=== PATIENT | male | born 1955 | race Two or more races ===

== ENCOUNTER 2019-07-21 10:59 | Outpatient (CLI) | payer MEDICAID ==
[~2019-07-21] VITALS: Ht 167.6 cm; Wt 81.2 kg
[2019-07-21 15:18] VITALS: BP 135/85
[2019-07-21] MEDS ORDERED: MICARDIS80 MG ORAL (15:18)
[2019-07-21] MEDS ORDERED: NYSTATIN15 GM TOPIC (15:18)
[2019-07-21] MEDS ORDERED: ASPIRIN EC81 MG ORAL (15:18)
[2019-07-21] MEDS ORDERED: AMLODIPINE BESY10 MG ORAL (15:18)
[2019-07-21] MEDS ORDERED: HYDROCHLOROTHIA25 MG ORAL (15:18)
[2019-07-21] MEDS ORDERED: METFORMIN HCL500 M1 ORAL (15:18)
[2019-07-21] MEDS ORDERED: ATORVASTATIN CA40 MG ORAL (15:18)
[2019-07-21] MEDS ORDERED: LANTUS SOL100 UNIT/1 SUBQ (15:18)
[2019-07-21] MEDS ORDERED: TRULICITY0.75 MG/0. SQ (15:18)
--- NOTE | 2019-07-22 15:30 | Consultation ---
DATE OF CONSULTATION: 07/21/2019 CONSULTING PHYSICIAN: Chidi Gillespie M.D. REFERRAL FOR: Abdominal pain, screening colonoscopy, evaluation of chronic GERD. HISTORY OF PRESENT ILLNESS: This is a 63-year-old male who was referred to us for evaluation of chronic abdominal pain, chronic acid reflux disease, and also need for screening colonoscopy. PAST MEDICAL HISTORY: 1. Hypertension. 2. Diabetes. PAST SURGICAL HISTORY: None. MEDICATIONS: Please see medication reconciliation list. FAMILY HISTORY: Brother had coronary artery disease. SOCIAL HISTORY: The patient occasionally drinks alcohol. Denies any tobacco or IV drug abuse. ALLERGIES: No known drug allergies. REVIEW OF SYSTEMS: Positive for abdominal pain, mostly in the epigastric area, chronic GERD. PHYSICAL EXAMINATION: VITAL SIGNS: Temperature 98.2, blood pressure 135/83, pulse is 70, respirations 20. HEENT: Normocephalic, atraumatic. Sclerae anicteric. NECK: Supple. No evidence of obvious lymphadenopathy. CARDIOVASCULAR: Regular rate and rhythm. Plus S1-S2. LUNGS: Clear to auscultation bilaterally. ABDOMEN: Positive bowel sounds. Soft and nontender. No rebound. No guarding. No peritoneal sign. EXTREMITIES: No cyanosis, no clubbing, no edema. ASSESSMENT AND PLAN: This is a 63-year-old male with epigastric abdominal pain, chronic GERD is here for that, also need for screening colonoscopy. The patient currently on a PPI daily without significant response. The patient will need endoscopy for evaluation of chronic GERD and also colonoscopy as a screening. The procedure, risks, and benefits was explained to him. The prep was explained to him. We will schedule him when authorization is obtained. Chidi Gillespie M.D. DR: MARYBETH JOB#: [id number] CC:
== END 2019-07-21 12:59 | disposition home or self-care (01) ==
LOC: PAN 10:59
DX: R10.9 Unspecified abdominal pain (principal); K21.9 Gastro-esophageal reflux disease without esophagitis; E11.9 Type 2 diabetes mellitus without complications; I10 Essential (primary) hypertension
CPT/HCPCS: G0463

== ENCOUNTER 2020-03-08 08:59 | Outpatient (CLI) | payer MEDICAID ==
[~2020-03-08 08:59] MED LIST: AMLODIPINE BESY10 MG ORAL; ASPIRIN EC81 MG ORAL; ATORVASTATIN CA40 MG ORAL; HYDROCHLOROTHIA25 MG ORAL; LANTUS SOL100 UNIT/1 SUBQ; METFORMIN HCL500 M1 ORAL; MICARDIS80 MG ORAL; NYSTATIN15 GM TOPIC; TRULICITY0.75 MG/0. SQ
[2020-03-08 09:26] VITALS: BP 124/68
--- NOTE | 2020-03-08 10:00 | General Progress Note ---
Subjective ROS Limited/Unobtainable: Yes Allergies: Coded Allergies: No Known Allergies (Unverified , 07/21/19) Objective Last 24 Hour Vital Signs Date Time Temp Pulse Resp B/P (MAP) Pulse Ox O2 Delivery O2 Flow Rate FiO2 03/08/20 09:26 98.0 70 16 124/68 98 General Appearance: alert EENT: normal ENT inspection Neck: supple Cardiovascular: normal rate Respiratory/Chest: chest wall non-tender, lungs clear Abdomen: normal bowel sounds, non tender, soft Extremities: non-tender Assessment/Plan Assessment/Plan: s/p colonoscopy 3 polyps fair prep HP neg gastritis plan repeat colonoscopy in 2 years Chidi Gillespie MD Mar 08, 2020 10:00
== END 2020-03-08 10:59 | disposition home or self-care (01) ==
LOC: PAN 08:59
DX: K63.5 Polyp of colon (principal); K29.70 Gastritis, unspecified, without bleeding
CPT/HCPCS: 99212